=== PATIENT | female | born 1980 | race American Indian/Alaskan Native ===

== ENCOUNTER 2020-04-08 14:51 | Outpatient (CLI) | payer OTHER ==
--- NOTE | 2020-04-08 16:33 | Magnetic Resonance Report ---
Bilateral breast MR without and with contrast. History: Patient at high risk for breast malignancy based upon family history. Diffuse mastopathy romero aterally. Comparison: None available. Technique: Multiplanar multisequence MR images of the breast were obtained before and after the intra venous administration of intravenous contrast. Post processing analysis and review was performed on a separate computer workstation. Findings: Breasts demonstrate moderate background parenchymal enhancement which along with the presence of mult iple scattered enhancing foci decreases the sensitivity of MRI. RIGHT BREAST: Located in the right breast at the 10:00 position, 7 cm from the nipple, is a 10 x 6 x 5 mm circumscribed oval enhancing mass. This is best seen on image 290 of 768. Additionally, there is a lobulated, possibly reniform shaped 6 x 5 x 4 mm mass in the right breast at the 11:00 position, 4 cm from the nipple. This is best seen on image 308 of 768 and may represent an intramammary lymph no de. A few small scattered cysts are noted throughout the right breast. No abnormal axillary or internal mammary lymph nodes. LEFT BREAST: No discrete enhancing mass, dominant focus, or other abnormal enhancement is identified within the left breast. A few small scattered cysts are present. Impression: 1. Located within the right breast at the 10:00 position is an oval 10 mm homogeneously enhancing ma ss. This may represent a fibroadenoma. A targeted ultrasound focused at the 10:00 position, 7 cm from the nipple, is recommended with subsequent ultrasound-guided biopsy if a sonographic correlate is id entified. If no sonographic correlate is identified, an MRI guided biopsy would be recommended. 2. Additionally, there is a lobulated, possibly reniform shaped 6 mm mass within the anterior right breast at the 11:00 position. This may represent an intramammary lymph node. A targeted ultrasound is recommended for further evaluation with possible subsequent ultrasound-guided biopsy if a sonographi c correlate is identified. We do not have any mammograms for this patient. Given the patient's age, it is suspected that this ma y be a baseline exam. However, if the patient has older mammograms at an outside facility, it would b e beneficial to to review these to assess for a mammographic correlate to the above findings which ma y alleviate the need for additional evaluation. Older mammograms may be submitted for review and an a ddendum will be added to this report. BIRADS 0: Incomplete--Needs Additional Imaging Evaluation. A normal MRI does not exclude the presence of some forms of breast malignancy as literature reports s uggest that some forms of ductal carcinoma in situ or lobular carcinoma, particularly, may not be det ected on MRI. The sensitivity and specificity of MRI for cancers under 5 mm may be reduced. MRI does not replace the recommendation for annual conventional mammographic evaluation and should be used as an adjunct to mammography and physical examination as necessary. Signer Name: Too Recinos MD Signed: 04/08/2020 4:28 PM Workstation Name: [id number]
== END 2020-04-08 14:52 | disposition home or self-care (01) ==
LOC: SPVIMAG 14:51
PROVIDERS: ATTEND Surgery
DX: N63.11 Unspecified lump in the right breast, upper outer quadrant (principal); N60.11 Diffuse cystic mastopathy of right breast; N60.12 Diffuse cystic mastopathy of left breast; Z80.3 Family history of malignant neoplasm of breast
CPT/HCPCS: A9575; C8908; 77049

== ENCOUNTER 2020-04-28 13:17 | Outpatient (CLI) | payer OTHER ==
--- NOTE | 2020-04-28 15:32 | Ultrasound Report ---
ULTRASOUND BREAST RIGHT LIMITED, 04/28/2020 CLINICAL INFORMATION / INDICATION: Targeted right breast ultrasound to evaluate MRI findings. TECHNIQUE: Targeted ultrasound evaluation was performed of the area of interest. COMPARISON: Bilateral breast MRI 04/08/20. FINDINGS: There is a 4 mm mildly complex cyst at the 1:00 position 3 cm from the nipple. There is a 6.9 mm ovoi d simple cyst at the 9:00 position 4 cm from the nipple. There is a 2.5 mm simple cyst at the 10:00 p osition 5 cm from the nipple. I do not identify a sonographic correlate for the 1 cm nodule at the 10 :00 position seen on MRI. There is a benign-appearing lymph node at the 11:00 position 6 cm from the nipple measuring 1.6 mm short axis. There is mild ductal ectasia at the 11:00 position 2 cm from the nipple. I see no evidence of a suspicious nodule, posterior shadowing or distortion. IMPRESSION: Multiple small benign lesions in the right breast as described. Follow up recommendation: Routine yearly BI-RADS Category 2: Benign. A normal or "negative" report should not preclude biopsy or follow-up of a clinically suspicious find ing. Signer Name: Abel Harris MD Signed: 04/28/2020 3:27 PM Workstation Name: [id number]
== END 2020-04-28 13:18 | disposition home or self-care (01) ==
LOC: SPVWC 13:17
PROVIDERS: ATTEND Surgery
DX: N60.01 Solitary cyst of right breast (principal); N60.41 Mammary duct ectasia of right breast

== ENCOUNTER 2020-09-15 10:36 | Outpatient (CLI) | payer OTHER ==
--- NOTE | 2020-09-15 11:44 | Ultrasound Report ---
ULTRASOUND BREAST RIGHT LIMITED, 09/15/2020 CLINICAL INFORMATION / INDICATION: Short-term follow-up. TECHNIQUE: Targeted ultrasound evaluation was performed of the area of interest. COMPARISON: Right breast ultrasound 04/28/20. FINDINGS: There is a 6.5 mm oval simple cyst at the 9:00 position 4 cm from the nipple, unchanged. There is a 4 .2 mm complicated cyst at the 10:00 position 5 cm from the nipple. There is a 3 mm simple cyst at the 11:00 position 4 cm from the nipple. There is a benign-appearing lymph node in the right axilla with slight cortical thickening (measuring 4.7 mm). IMPRESSION: No sonographic evidence of malignancy. Follow up recommendation: Unless otherwise clinically indicated, recommend patient return to routine screening mammography at age 42. A normal or "negative" report should not preclude biopsy or follow-up of a clinically suspicious find ing. Signer Name: Abel Harris MD Signed: 09/15/2020 11:39 AM Workstation Name: [id number]
== END 2020-09-15 10:37 | disposition home or self-care (01) ==
LOC: SPVWC 10:36
PROVIDERS: ATTEND Surgery
DX: N60.01 Solitary cyst of right breast (principal); R92.8 Other abnormal and inconclusive findings on diagnostic imaging of breast; R59.0 Localized enlarged lymph nodes

== ENCOUNTER 2020-10-06 14:50 | Outpatient (CLI) | payer OTHER ==
--- NOTE | 2020-10-06 16:27 | Magnetic Resonance Report ---
Bilateral breast MR without and with contrast. History: Patient at high risk for breast malignancy based upon family history. Findings noted in the right breast on prior MRI. Comparison: 09/15/2020, 04/28/2020, 04/08/2020. Technique: Multiplanar multisequence MR images of the breast were obtained before and after the intra venous administration of 18 mL of Clariscan contrast agent. Post processing analysis and review was p erformed on a separate computer workstation. Findings: There is moderate background parenchymal enhancement within both breasts which decreases the sensitiv ity of MRI. RIGHT BREAST: A previously noted 10 x 6 x 5 mm oval circumscribed mass in the right breast at the 10: 00 position, 7 cm from the nipple, is not significantly changed in size but demonstrates intermediate type II enhancement kinetics. This is seen best on series 6, image 515. Additionally, a 6 x 5 x 4 mm lesion within the right breast at the 11:00 position, 4 cm from the nipple, is not significantly gonzalo nged, seen best on series 6, image 528. This demonstrates primarily low level enhancement kinetics. A prior ultrasound of these areas was performed and showed no definite sonographic correlate to the 10 :00 mass. LEFT BREAST: No discrete enhancing mass, dominant focus, or other abnormal enhancement is identified within the left breast. No abnormal axillary or internal mammary lymph nodes. Impression: No significant change in size of a previously noted 10 mm oval enhancing mass in the right breast at the 10:00 position. However, this demonstrates intermediate type II enhancement kinetics. Given no so nographic correlate was identified, an MRI guided biopsy is recommended. No significant change in a 6 mm lesion within the right breast at the 11:00 position. This demonstrat es primarily low level enhancement kinetics. Assuming the biopsied lesion at the 10:00 position is fo und to be benign, an MRI follow-up of this finding in 6 months would be recommended. BIRADS 0: Incomplete--Needs Additional Imaging Evaluation. A normal MRI does not exclude the presence of some forms of breast malignancy as literature reports s uggest that some forms of ductal carcinoma in situ or lobular carcinoma, particularly, may not be det ected on MRI. The sensitivity and specificity of MRI for cancers under 5 mm may be reduced. MRI does not replace the recommendation for annual conventional mammographic evaluation and should be used as an adjunct to mammography and physical examination as necessary. Signer Name: oTo Recinos MD Signed: 10/06/2020 4:23 PM Workstation Name: [id number]
== END 2020-10-06 14:51 | disposition home or self-care (01) ==
LOC: SPVIMAG 14:50
PROVIDERS: ATTEND Surgery
DX: N64.9 Disorder of breast, unspecified (principal); N64.4 Mastodynia; Z80.3 Family history of malignant neoplasm of breast
CPT/HCPCS: A9575; C8908; 77049

== ENCOUNTER 2020-11-03 12:39 | Outpatient (CLI) | payer OTHER ==
--- NOTE | 2020-11-03 16:44 | Mammography Report ---
DIGITAL DIAGNOSTIC MAMMOGRAM, 11/03/2020 CLINICAL INFORMATION / INDICATION: Postbiopsy right mammogram was performed after MRI guided biopsy t o document clip placement. A left mammogram was obtained to keep patient on an annual screening sched ule. TECHNIQUE: Digital bilateral mammographic imaging was performed. COMPARISON: MRI guided biopsy, 11/23/2020. Breast MRI, 10/06/2020 and 04/08/2020. Bilateral mammogram, and 07/25/2016 FINDINGS: Breast Density: The breasts are heterogeneously dense, which may obscure small masses. No dominant mass, suspicious calcifications or architectural distortion in either breast. Biopsy marker is present in the right breast at the 10:00 position posterior depth in expected locati on after MRI guided biopsy. IMPRESSION: No mammographic evidence of malignancy. Please note the patient also underwent MRI guided right breast biopsy earlier today. This is dictated in a separate report. Biopsy results are pending at this time. Follow up recommendation: Routine yearly BI-RADS Category 2: Benign. A "normal" or negative report should not discourage follow up or biopsy of a clinically significant f inding. A written summary of these findings will be mailed to the patient. The patient will be entered into a mammography reporting system which will generate a reminder letter for the patient's next appointmen t at the appropriate interval. According to the [employer], yearly mammograms are recommended starting at age 40 and continuing as long as a woman is in good health. Breast MRI is recommended for women with an grayson roximately 20-25% or greater lifetime risk of breast cancer, including women with a strong family his tory of breast or ovarian cancer and women who have been treated for Hodgkin's disease. Signer Name: Lenore Aguilar MD Signed: 11/03/2020 4:40 PM Workstation Name: [id number]
--- NOTE | 2020-11-04 13:23 | Magnetic Resonance Report ---
MRI guided right breast biopsy CLINICAL INFORMATION/INDICATION: The patient has a history of recent abnormal breast MRI which demons trated an enhancing lesion in the right breast at the 10:00 position. There is no mammographic or son ographic correlate. Therefore, MRI guided biopsy was indicated. COMPARISON: Breast MRI, 10/06/2020. PROCEDURE: Risks, benefits and indications to the procedure were discussed with the patient in detail, including bleeding, infection, hematoma formation and inadequate tissue sampling. The patient agreed to procee d with both verbal and written consent. A timeout procedure was performed with two patient identifier s. The patient was placed in the prone position in the MRI suite and localizer imaging was obtained usin g an 8 channel breast coil. Sagittal pre and post gadolinium fat-saturated sequences were obtained. The targeted area of interest was then identified and coordinates were determined. The breast was beatriz ansed and prepped in the usual sterile fashion. Lidocaine 1% with and without epinephrine was used fo r local anesthesia. A 9 gauge introducer sheath and stylette was then advanced to the appropriate pos ition from the lateral approach. The stylette was replaced with an obturator. Subsequent sagittal se quences were obtained to confirm satisfactory positioning of the sheath. Multiple vacuum-assisted 9 g auge core samples were obtained in a round the clock fashion with an [facility] biopsy device. Post-biopsy images confirm satisfactory tissue sampling at the targeted location. A biopsy clip was then deployed at the biopsy site and sheath was removed. Hemostasis achieved with manual pressure. A sterile pres sure dressing was applied to the skin. The patient tolerated the procedure without difficulty. No complications were encountered. Post-biops y instructions were discussed with the patient and given in writing. Please note that the enhancing lesion at the 10:00 position was selected for biopsy. The recent [facility] report did mention an additional lesion at the 11:00 position which has benign features and was interpreted as likely benign. Review of these images demonstrate that the lesion at the 11:00 positi on most likely represents a normal intramammary lymph node. Therefore, only the lesion at 10:00 posit ion was selected for today's biopsy. IMPRESSION: 1. Technically successful MRI guided right breast biopsy. Biopsy results are pending and will be repo rted in an addendum. Signer Name: Lenore Aguilar MD Signed: 11/04/2020 1:18 PM Workstation Name: [id number]
== END 2020-11-03 12:40 | disposition home or self-care (01) ==
LOC: SPVIMAG 12:39
PROVIDERS: ATTEND Surgery
DX: N63.11 Unspecified lump in the right breast, upper outer quadrant (principal); R92.8 Other abnormal and inconclusive findings on diagnostic imaging of breast; R92.0 Mammographic microcalcification found on diagnostic imaging of breast; N60.81 Other benign mammary dysplasias of right breast; N64.89 Other specified disorders of breast; G43.909 Migraine, unspecified, not intractable, without status migrainosus; J45.909 Unspecified asthma, uncomplicated; K21.9 Gastro-esophageal reflux disease without esophagitis; Z79.899 Other long term (current) drug therapy; Z87.891 Personal history of nicotine dependence; Z98.890 Other specified postprocedural states; Z82.49 Family history of ischemic heart disease and other diseases of the circulatory system
CPT/HCPCS: 19085; 77066; 88305; A4648; A9575; 88341; 88342